=== PATIENT | male | born 1990 | race Caucasian/White ===

== ENCOUNTER 2024-05-22 15:39 | Emergency (ER) | payer SELFPAY ==
[~2024-05-22] VITALS: Ht 154.9 cm; Wt 63.5 kg
[2024-05-22 15:44] VITALS: BP_SYST 104; PULSE 105; RESP 18; TEMP 98.3; O2SAT 98
[2024-05-22 16:46] LABS: BASOPHILS # (AUTO) 0.1 K/uL (0.0-0.2); EOSINOPHILS # (AUTO) 0.5 K/uL (0.0-0.4); EOSINOPHILS % (AUTO) 5.1 % (0.0-4.0); HEMATOCRIT 32.4 % (36-54); HEMOGLOBIN 10.9 g/dL (14.0-18.0); LYMPHOCYTES # (AUTO) 2.8 K/uL (1.0-5.5); LYMPHOCYTES % (AUTO) 28.2 % (20.5-51.5); MEAN CORPUSCULAR HEMOGLOBIN 28 pg (27-31); MEAN CORPUSCULAR HGB CONC 34 % (32-36); MEAN CORPUSCULAR VOLUME 83 fL (79.0-98.0); MONOCYTES # (AUTO) 0.8 K/uL (0.0-1.0); MONOCYTES % (AUTO) 7.5 % (1.7-9.3); NEUTROPHILS # (AUTO) 5.8 K/uL (1.8-7.7); NEUTROPHILS % (AUTO) 58.2 % (40.0-70.0); PLATELET COUNT (AUTO) 487 K/uL (130-430); RED BLOOD CELL COUNT(AUTO) 3.92 MIL/uL (4.2-6.2); RED CELL DISTRIBUTION WIDTH 14.7 % (9.0-15.0)
[2024-05-22 17:02] LABS: ALANINE AMINOTRANSFERASE 18 U/L (12-78); ALBUMIN 2.6 g/dL (3.4-4.8); ANION GAP 10 (5-15); ASPARTATE AMINOTRANSFERASE 15 U/L (10-37); CARBON DIOXIDE 22 mmol/L (23-29); CHLORIDE 109 mmol/L (98-107); CREATININE 0.45 mg/dL (0.55-1.30); GFR AFRICAN AMERICAN 278 mL/min (>90); GFR NON AFRICAN-AMERICAN 230 mL/min (>90); GLUCOSE 84 mg/dL (74-106); POTASSIUM 3.4 mmol/L (3.5-5.1); SODIUM SERUM 141 mmol/L (136-145); TOTAL BILIRUBIN 0.2 mg/dL (0.0-1.0); TOTAL PROTEIN, SERUM 6.2 g/dL (6.4-8.3); UREA NITROGEN, BLOOD 19 mg/dL (8-21)
[2024-05-22 17:09] LABS: BILIRUBIN,DIRECT 0.1 mg/dL (0.0-0.3); CREATINE KINASE, TOTAL 62 U/L (39-308); SALICYLATE 2 mg/dL (3-30)
[2024-05-22 17:12] LABS: ACETAMINOPHEN < 1 ug/mL (1-30)
[2024-05-22 17:13] LABS: ALCOHOL, BLOOD < 3 mg/dL (<10)
[2024-05-22 21:07] LABS: BARBITURATE, URINE NEGATIVE (NEG <=200)
[2024-05-22 21:08] LABS: BENZODIAZEPINE, URINE NEGATIVE (NEG <=150); CANNABINOID, URINE POSITIVE (NEG <=50); COCAINE, URINE NEGATIVE (NEG <=150); METHAMPHETAMINES SCREEN,URINE POSITIVE (NEG <=500); OPIATE, URINE NEGATIVE (NEG <=100); PHENCYCLIDINE SCREEN,URINE NEGATIVE (NEG <=25); UR TRICYCLIC ANTIDEPRESSANTS NEGATIVE (NEG <=300); URINE AMPHETAMINE POSITIVE (NEG <=500); URINE METHADONE NEGATIVE (NEG <=200); URINE OXYCODONE SCREEN NEGATIVE (NEG <=100)
[2024-05-22] MEDS: OLANZapine 2.5 MG TABLET PO ONE (21:50)
[2024-05-22] MEDS: OLANZapine 5 MG TABLET ONE (21:51)
[2024-05-22] MEDS: OLANZapine 2.5 MG TABLET ONE (21:51)
[2024-05-22] MEDS: OLANZapine 5 MG TABLET PO ONE (21:51)
[2024-05-23 04:48] LABS: BILIRUBIN,URINE NEGATIVE (NEGATIVE); BLOOD, URINE 3+ (NEGATIVE); CLARITY/URINE CLEAR (CLEAR); COLOR,URINE YELLOW (YELLOW); GLUCOSE,URINE NEGATIVE (NEGATIVE); KETONES,URINE NEGATIVE (NEGATIVE); LEUKOCYTE ESTERASE ,URINE 1+ (NEGATIVE); NITRITE, URINE POSITIVE (NEGATIVE); PROTEIN URINE 1+ (NEGATIVE); UROBILINOGEN,URINE 0.2 (0.2-1.0)
[2024-05-23 05:06] LABS: BACTERIA,URINE MODERATE /HPF (None Seen)
[2024-05-23] MEDS: cephALEXin 500 MG CAPSULE PO ONE (06:15)
[2024-05-23] MEDS ORDERED: cefTRIAXone 1 GM VIAL ONE (06:55)
[2024-05-23] MEDS: cefTRIAXone 1 GM in D5W 50 ML IV ONE (07:13)
[2024-05-23] MEDS: cefTRIAXone 1 GM in LIDOCAINE 1%, 20 ML MDV 2.1 ML IM ONE (07:13)
[2024-05-23] MEDS ORDERED: NITR-85 PO (09:57)
[2024-05-23 10:07] VITALS: BP_SYST 104; PULSE 65; RESP 18; TEMP 97; O2SAT 99
== END 2024-05-23 10:08 | disposition home or self-care (01) ==
LOC: SED 15:39
DX: R53.1 Weakness (principal); R41.82 Altered mental status, unspecified; F20.9 Schizophrenia, unspecified; F15.10 Other stimulant abuse, uncomplicated; F12.20 Cannabis dependence, uncomplicated; Z20.822 Contact with and (suspected) exposure to COVID-19; Z59.00 Homelessness unspecified
CPT/HCPCS: 99285; 70450; 71045; 87426; 80307; 80076; 80048; 81001; 82550; 85025; 87086; 36415; 82948; 96365; G0482; J0696; G0480; G0481; 81000; 81015